=== PATIENT | male | born 1975 ===

== ENCOUNTER 2019-12-30 15:49 | Emergency (ER) | payer SELFPAY ==
[~2019-12-30] VITALS: Ht 180.3 cm; Wt 135.9 kg
[2019-12-30 15:51] VITALS: Ht 180.3 cm; Wt 135.9 kg
[2019-12-30 16:42] LABS: BASOPHILS 1.4 % (0-2); HEMATOCRIT 37.5 % (42.0-54.0); HEMOGLOBIN 11.6 g/dL (13.5-17.5); IMMATURE GRANULOCYTES 0.2 % (0-5); MCH 23.1 pg (26.0-34.0); MCHC 30.9 g/dL (31.0-37.0); MCV 74.7 fL (80.0-100.0); MEAN PLATELET VOLUME 9.2 fL (7.4-10.4); MONOCYTES 6.1 % (2-11); NEUTROPHILS 57.3 % (40-80); PLATELET COUNT 325 10x3/uL (130-400); RBC 5.02 10x6/uL (4.20-6.10); RDW 17.6 % (11.5-14.5); WBC 5.7 10x3/uL (4.8-10.8)
[2019-12-30 16:47] LABS: CARBON DIOXIDE 24.8 mmol/L (21.0-32.0); CREATININE - SERUM 1.2 mg/dL (0.6-1.3); POTASSIUM - SERUM 3.8 mmol/L (3.5-5.1)
[2019-12-30 17:02] LABS: ALBUMIN 3.6 g/dL (3.4-5.0); BILIRUBIN - TOTAL 0.27 mg/dL (0.2-1.3); MAGNESIUM - SERUM 1.8 mg/dL (1.8-2.4); PROTEIN - SERUM 8.4 g/dL (6.4-8.2)
[2019-12-30 17:12] LABS: BILIRUBIN NEGATIVE (NEGATIVE); GLUCOSE NEGATIVE (NEGATIVE); KETONE NEGATIVE (NEGATIVE); NITRITE NEGATIVE (NEGATIVE); UROBILINOGEN NORMAL (NORMAL)
[2019-12-30 17:20] LABS: UDS - AMPHET NEGATIVE QUAL (NEGATIVE); UDS - BARB NEGATIVE QUAL (NEGATIVE); UDS - BENZO NEGATIVE QUAL (NEGATIVE); UDS - COCAINE NEGATIVE QUAL (NEGATIVE); UDS - OPIATE NEGATIVE QUAL (NEGATIVE); UDS - PCP NEGATIVE QUAL (NEGATIVE); UDS - THC NEGATIVE QUAL (NEGATIVE)
[2019-12-30] MEDS ORDERED: LIBRIUM25 MG PO (18:56)
[2019-12-30 23:43] VITALS: BP 123/77
[2019-12-31 11:02] VITALS: Ht 180.3 cm; Wt 135.9 kg
== END 2019-12-30 23:44 | disposition home or self-care (01) ==
LOC: EDBD 15:49 → D.ER 15:49
PROVIDERS: Family Medicine
DX: F10.129 Alcohol abuse with intoxication, unspecified (principal); Y90.8 Blood alcohol level of 240 mg/100 ml or more; I10 Essential (primary) hypertension

== ENCOUNTER 2019-12-31 02:46 | Inpatient (IN) | payer MEDICAID ==
[~2019-12-31] VITALS: Ht 180.3 cm; Wt 90.7 kg
[~2019-12-31 02:46] MED LIST: LIBRIUM25 MG PO
[2019-12-31 03:50] LABS: BASOPHILS 1.3 % (0-2); EOSINOPHILS 0.9 % (0-7); HEMATOCRIT 35.8 % (42.0-54.0); HEMOGLOBIN 11.1 g/dL (13.5-17.5); IMMATURE GRANULOCYTES 0.1 % (0-5); MCH 23.2 pg (26.0-34.0); MCV 74.7 fL (80.0-100.0); MEAN PLATELET VOLUME 9.3 fL (7.4-10.4); MONOCYTES 9.2 % (2-11); NEUTROPHILS 53.5 % (40-80); PLATELET COUNT 326 10x3/uL (130-400); RBC 4.79 10x6/uL (4.20-6.10); RDW 17.7 % (11.5-14.5)
[2019-12-31 03:52] LABS: WBC 7.6 10x3/uL (4.8-10.8)
[2019-12-31 03:53] LABS: CALCIUM 8.1 mg/dL (8.5-10.1); CARBON DIOXIDE 24.2 mmol/L (21.0-32.0); CREATININE - SERUM 1.2 mg/dL (0.6-1.3); POTASSIUM - SERUM 4.2 mmol/L (3.5-5.1)
[2019-12-31 03:59] LABS: ALBUMIN 3.6 g/dL (3.4-5.0); BILIRUBIN - TOTAL 0.45 mg/dL (0.2-1.3); MAGNESIUM - SERUM 1.9 mg/dL (1.8-2.4); PROTEIN - SERUM 7.9 g/dL (6.4-8.2)
--- NOTE | 2019-12-31 07:30 | NUR ---
PATIENT RECEIVED TO ROOM AND ORIENTED TO ROOM AND ENVIRONMENT. COMPLAINS OF GENERALIZED ABDOMINAL DISCOMFORT. IV TO LEFT HAND WITH IVF INFUSING AT PRESCRIBED RATE.ENCOURAGED TO USE CALLL LIGHT FOR ASSSIT.
[2019-12-31 09:29] VITALS: BP 129/72; BMI 27.9
[2019-12-31 09:42] VITALS: BP 129/72
[2019-12-31 11:02] VITALS: Ht 180.3 cm; Wt 90.7 kg
[2019-12-31 12:12] VITALS: BP 123/75
[2019-12-31 17:08] VITALS: BP 144/93
--- NOTE | 2019-12-31 19:40 | NUR ---
PATIENT RESTING IN BED WITH NO S/S OF DISTRESS. PATIENT DENIES NEEDS AT THIS TIME. BED IN LOWEST POSITION AND CL WITHIN REACH. ENCOURAGED THE PATIENT TO CALL IF HE HAS NEEDS. WILL CONTINUE TO MONITOR.
[2019-12-31 20:00] VITALS: BP 143/96
[2020-01-01] VITALS: BP 150/108
[2020-01-01 04:00] VITALS: BP 109/57
[2020-01-01 07:10] LABS: BASOPHILS 0.5 % (0-2); EOSINOPHILS 1.5 % (0-7); HEMATOCRIT 33.3 % (42.0-54.0); HEMOGLOBIN 10.1 g/dL (13.5-17.5); IMMATURE GRANULOCYTES 0.1 % (0-5); LYMPHOCYTES 21.3 % (15-50); MCH 22.9 pg (26.0-34.0); MCHC 30.3 g/dL (31.0-37.0); MCV 75.5 fL (80.0-100.0); MEAN PLATELET VOLUME 9.4 fL (7.4-10.4); MONOCYTES 10.9 % (2-11); NEUTROPHILS 65.7 % (40-80); PLATELET COUNT 274 10x3/uL (130-400); RBC 4.41 10x6/uL (4.20-6.10); RDW 17.6 % (11.5-14.5); WBC 9.1 10x3/uL (4.8-10.8)
[2020-01-01 07:42] LABS: ALBUMIN 3.2 g/dL (3.4-5.0); ALKALINE PHOSPHATASE 110 U/L (30-120); AMYLASE - SERUM 93 U/L (25-115); BILIRUBIN - TOTAL 0.98 mg/dL (0.2-1.3); CALC OSMOLALITY 266 mosm/kg (275-300); CALCIUM 7.8 mg/dL (8.5-10.1); CHLORIDE - SERUM 102 mmol/L (98-107); CREATININE - SERUM 1.1 mg/dL (0.6-1.3); GLUCOSE 93 mg/dL (74-106); LIPASE 1292 U/L (73-393); PROTEIN - SERUM 7.2 g/dL (6.4-8.2); SODIUM 135 mmol/L (136-145); UREA NITROGEN 4 mg/dL (7-18); eGFR NON AFRICAN AMERICAN 78 mL/min (90-120)
[2020-01-01 08:13] LABS: ALT (SGPT) 43 U/L (10-68)
--- NOTE | 2020-01-01 09:00 | NUR ---
ALERT AND ORIENTED, RESTING IN BED. IVF INFUSING AT PRESCRIBED RATETO RT. HAND. PATIENT COMPLIANS OF PAIN TO RT. ELBOW AND LEFT ANKLE. GOOD ROM NOTED WITH SLIGHT WARMTH TORIGHT ELBOW WITH GOOD RADIAL PULSES NOTED. DR WORRELL HERE WITH NEW ORDER NOTED. NO S/S OF AGITATION OR DELERIUM TREMERS AT THIS TIME. ENCOURASGED TO USE CALL LIGHT FOR ASSIST.
[2020-01-01 09:45] VITALS: BP 133/103
[2020-01-01 10:48] LABS: CREATINE KINASE 345 UL (21-232)
[2020-01-01 10:52] LABS: CKMB 0.5 U/L (0.0-3.6)
--- NOTE | 2020-01-01 11:50 | NUR ---
PATIENT PREMEDICATED FOR SURGERY WITH SURGERY STAFF HERE TO TAKE FOR PROCEDURE. STABLE AT TIME OF DEPARTURE.
--- NOTE | 2020-01-01 11:58 | NUR ---
PATIENT STATED WAS LEAVING. DISCUSSED AMA WITH RISK VERSUS BENEFITS OF STYING FOR TREATMENT. . PATIENT STATED WAS HUNGRY AND WAS GOING TO EAT. STATED HE HASN'T EATEN IN 6 DAYS AND WAS GOING TO EAT. IV DISCONTINUED WITH AMA PAPERWORK SIGNED. STABLE AND AMBULATING ON LEAVING FACILITY.
== END 2020-01-01 12:02 | disposition left against medical advice (07) | DRG 440 ==
LOC: D.ER 02:46 → EDBD 06:17 → D.MS 06:17
PROVIDERS: Family Medicine; ADMIT Family Medicine; ATTEND Family Medicine
DX: K85.20 Alcohol induced acute pancreatitis without necrosis or infection (principal); F10.229 Alcohol dependence with intoxication, unspecified; Y90.6 Blood alcohol level of 120-199 mg/100 ml; I10 Essential (primary) hypertension; M25.521 Pain in right elbow